=== PATIENT | male | born 1970 | race Caucasian/White ===

== ENCOUNTER 2019-03-15 13:00 | Emergency (ER) | payer OTHER ==
--- NOTE | 2019-03-15 13:03 | ERPHSYRPT ---
- History of Present Illness Time Seen by Provider: 03/15/19 13:02 Source: patient, family, old records Exam Limitations: no limitations Physician History: PT IS A 48 Y/O MALE PRESENTS WITH FAMILY C/O NON RADIATING SHARP 10/10 RIGHT LOW BACK PAIN THAT HE AWOKE WITH THIS AM. NO PARESTHESIAS/DSYURIA/HEMATURIA/ PENILE DC/FEVER/CHILLS/N/V/CP/SOB/FALL/HEAVY LIFTING/INCONTINENT OF BOWEL OR BLADDER. HAS HX OF PRIOR LBP BUT THIS IS MORE INTENSE. NO FHX AORTA. DID NOT TRY ANALGESIA PMHX ETOH ABUSE--LAST DRINK 2 YRS AGO, BACK STRAIN PSHX REVIEWED MEDS REVIEWED ALL COMPAZINE DENIES TOB LAST ETOH 2 YRS AGO DENIES ILLICITS EMPLOYED FHX NEG AORTA Allergies/Adverse Reactions: prochlorperazine [From Compazine] Allergy (Verified 03/15/19 13:21) Home Medications: Loratadine 10 mg [Claritin 10 mg] 10 mg PO DAILY 03/15/19 [History] - Review of Systems Constitutional: No Symptoms, No Fever, No Chills, No Fatigue, No Lethargy, No Malaise, No Night Sweats, No Weakness, No Weight Loss Eyes: No Symptoms, No Discharge, No Eye Pain, No Eye Redness, No Itchy, No Photophobia, No Tearing, No Vision Changes, No Double Vision, No Foreign Body Sensation Ears, Nose, & Throat: No Symptoms, No Ear Pain, No Ear Discharge, No Hearing Changes, No Tinnitus, No Nose Congestion, No Nose Discharge, No Epistaxis, No Mouth Pain, No Mouth Swelling, No Throat Pain, No Throat Swelling, No Hoarse, No Painful Swallowing, No Stridor Respiratory: No Symptoms, No Cough, No Cyanosis, No Dyspnea, No Dyspnea on Exertion (MARTINEZ), No Stridor, No Wheezing Cardiac: No Symptoms, No Chest Pain, No Edema, No Palpitations, No Syncope, No Orthopnea Abdominal/Gastrointestinal: No Symptoms, No Abdominal Pain, No Nausea, No Vomiting, No Diarrhea, No Constipation, No Hematemesis, No Hematochezia, No Melena, No Dysphagia, No Appetite Changes Genitourinary Symptoms: No Symptoms, No Dysuria, No Frequency, No Hematuria, No Hesitancy, No Incontinence, No Urgency, No Urinary Retention, No Flank Pain Musculoskeletal: No Symptoms, Back Pain, No Arthralgias, No Neck Pain, No Deformity, No Fall, No Injury, No Joint Redness, No Joint Pain, No Joint Swelling, No Myalgias Skin: No Symptoms, No Cellulitis, No Decubiti, No Induration, No Pruritis, No Rash, No Skin Lesions, No Dryness Neurological: No Symptoms, No Dizziness, No Focal Weakness, No Gait Changes, No Headache, No Irritability, No Lethargy, No Paralysis, No Parasthesia, No Seizure , No Sensory Changes, No Speech Changes, No Tics, No Tremors, No Vertigo Psychological: No Symptoms, No Alcohol Abuse, No Drug Abuse, No Anxiety, No Depression, No Suicidal Ideations, No Homicidal Ideations, No Emotional Lability , No Hallucinations, No Memory Loss, No Mood Changes Endocrine: No Symptoms, No Polyuria, No Polydipsia, No Hair Changes, No Cold Intolerance, No Excessive Sweating, No Goiter Hematologic/Lymphatic: No Symptoms, No Anemia, No Blood Clots, No Easy Bleeding , No Gum Bleeding, No Easy Bruising, No Adenopathy Immunological/Allergic: No Symptoms All Other Systems: Reviewed and Negative - Nursing Vital Signs Nursing Vital Signs: Initial Vital Signs Temperature 97.8 F 03/15/19 13:06 Pulse Rate 76 03/15/19 13:06 Respiratory Rate 22 03/15/19 13:06 Blood Pressure 136/111 03/15/19 13:06 O2 Sat by Pulse Oximetry 98 03/15/19 13:06 Pain Scale Pain Intensity [Right Back] 10 Pain Intensity 9 - Physical Exam General Appearance: no apparent distress, mild distress, alert Eye Exam: PERRL/EOMI, eyes nml inspection, other (fundi normal rey), No scleral icterus, No pale conjunctivae, No photophobia, No EOM palsy/anisocoria Ears, Nose, Throat Exam: normal ENT inspection, TMs normal, pharynx normal, TM abnormal (L), other (uvula midline, floor of mouth soft), No moist mucous membranes, No dry mucous membranes, No TM abnormal (R), No pharyngeal erythema, No tonsillar exudate Neck Exam: normal inspection, non-tender, supple, full range of motion, No meningismus, No mass, No Brudzinski, No Kernig's, No carotid bruit, No JVD, No limited range of motion, No lymphadenopathy, No midline tenderness, No thyromegaly Respiratory Exam: normal breath sounds, lungs clear, airway intact, No chest tenderness, No respiratory distress, No diminished breath sounds, No accessory muscle use, No prolonged expirations, No crackles/rales, No rhonchi, No wheezing , No stridor, No pleural rub Cardiovascular Exam: regular rate/rhythm, normal heart sounds, normal peripheral pulses, capillary refill <2 sec, No murmur, No friction rub, No gallop, No tachycardia, No bradycardia, No irregular, No capillary refill 2-3 sec, No capillary refill >3 sec, No edema, No pulse deficit Gastrointestinal/Abdomen Exam: soft, normal bowel sounds, No tenderness, No distention, No mass, No guarding, No ecchymosis, No pulsatile mass, No rebound, No hernia, No hepatomegaly, No organomegaly, No splenomegaly, No bruit Male Genitalia Exam: normal genitalia Rectal Exam: deferred, other (NO SACRAL ANESTHESIA) Back Exam: normal inspection, normal range of motion, other (neg slr rey, no sacral anesthesia, dtr 2/4 rey patella), No CVA tenderness, No vertebral tenderness, No rash, No decreased range of motion, No muscle spasm, No point tenderness Extremity Exam: normal inspection, normal range of motion, pelvis stable, No amputations, No contusions, No calf tenderness, No deformities, No lacerations, No parasthesia, No paralysis, No inflammation, No joint swelling, No limited range of motion, No pedal edema, No swelling, No tenderness Neurologic Exam: alert, oriented x 3, cooperative, truck washer II-XII nml as tested, normal mood/affect, nml cerebellar function, nml station & gait, sensation nml, No motor deficits, No sensory deficit, No disoriented, No confusion, No agitation, No uncooperative, No intoxicated appearance, No depressed mood/affect , No motor weakness, No facial droop, No slurred speech, No aphasia, No dysarthria, No abnormal gait, No abnormal cerebellar tests, No abnormal truck washer II- XII, No EOM palsy Skin Exam: normal color, warm, dry, No rash, No petechiae, No jaundice, No abrasion, No cyanosis, No diaphoresis, No decubitus, No embolic lesions, No ecchymosis, No jaundice, No laceration, No mottled, No pale Lymphatic Exam: No adenopathy SpO2 Interpretation: normal O2 Delivery: Room Air Ordered Tests: Active Orders 24 hr Category Date Time Status IV Insertion STAT Care 03/15/19 13:11 Active ABDOMEN AND PELVIS W/0 CONTRAS [CT] Stat Exams 03/15/19 13:11 Completed CBC W DIFF Stat Lab 03/15/19 13:25 Completed CMP Stat Lab 03/15/19 13:25 Completed ESR [Erythrocyte Sedimentation Rate] Stat Lab 03/15/19 13:25 Completed UA W/RFX UR CULTURE Stat Lab 03/15/19 13:06 Completed Medication Summary Discontinued Medications Generic Name Dose Route Start Last Admin Trade Name Freq PRN Reason Stop Dose Admin Hydrocodone Bitart/Acetaminophen 1 tab 03/15/19 13:11 03/15/19 13:21 [place] 5/325 Mg PO 03/15/19 13:12 1 tab STAT ONE Administration Hydrocodone Bitart/Acetaminophen Confirm 03/15/19 13:19 [place] 5/325 Mg Administered 03/15/19 13:20 Dose 1 tab .ROUTE .STK-MED ONE Hydromorphone HCl 1 mg 03/15/19 13:44 03/15/19 13:49 Hydromorphone 1 Mg/Ml Ampule IV 03/15/19 13:45 1 mg STAT ONE Administration Hydromorphone HCl Confirm 03/15/19 13:47 Hydromorphone 1 Mg/Ml Ampule Administered 03/15/19 13:48 Dose 1 mg .ROUTE .STK-MED ONE Sodium Chloride 1,000 mls @ 999 mls/hr 03/15/19 13:11 03/15/19 13:21 Sodium Chloride 0.9% 1000 Ml IV 03/15/19 14:11 999 mls/hr .Q1H1M STA Administration Sodium Chloride Confirm 03/15/19 13:19 Sodium Chloride 0.9% 1000 Ml Administered 03/15/19 13:20 Dose 1,000 mls @ ud .ROUTE .STK-MED ONE Sodium Chloride 1,000 mls @ 999 mls/hr 03/15/19 13:51 03/15/19 14:18 Sodium Chloride 0.9% 1000 Ml IV 03/15/19 14:51 999 mls/hr .Q1H1M STA Administration Sodium Chloride Confirm 03/15/19 14:18 Sodium Chloride 0.9% 1000 Ml Administered 03/15/19 14:19 Dose 1,000 mls @ ud .ROUTE .STK-MED ONE Ketorolac Tromethamine 15 mg 03/15/19 13:11 03/15/19 13:20 Toradol 30 Mg Injection IV 03/15/19 13:12 15 mg STAT ONE Administration Ketorolac Tromethamine Confirm 03/15/19 13:18 Toradol 30 Mg Injection Administered 03/15/19 13:19 Dose 30 mg .ROUTE .STK-MED ONE Lab/Rad Data: Laboratory Result Diagrams 03/15/19 13:25 03/15/19 13:25 Laboratory Results 03/15/19 03/15/19 03/15/19 Range/Units 13:25 13:25 13:25 WBC 7.4 (4.0-10.5) K/mm3 RBC 4.75 (4.1-5.6) M/mm3 Hgb 15.3 (12.5-18.0) gm/dl Hct 43.6 (42-50) % MCV 91.8 (78-100) fl MCH 32.2 H (26-32) pg MCHC 35.1 (32-36) g/dl RDW 13.4 (11.5-14.0) % Plt Count 267 (150-450) K/mm3 MPV 9.6 H (6-9.5) fl Gran % 48.8 (36.0-66.0) % Eos # (Auto) 0.62 H (0-0.5) Absolute Lymphs (auto) 2.34 (1.0-4.6) Absolute Monos (auto) 0.79 (0.0-1.3) Lymphocytes % 31.8 (24.0-44.0) % Monocytes % 10.7 (0.0-12.0) % Eosinophils % 8.4 H (0.00-5.0) % Basophils % 0.3 (0.0-0.4) % Absolute Granulocytes 3.59 (1.4-6.9) Basophils # 0.02 (0-0.4) ESR 5 (0-15) mm/hr Sodium 143 (137-145) mmol/L Potassium 3.7 (3.5-5.1) mmol/L Chloride 104 (98-107) mmol/L Carbon Dioxide 26 (22-30) mmol/L Anion Gap 16.4 H (5-15) MEQ/L BUN 18 (9-20) mg/dL Creatinine 1.01 (0.66-1.25) mg/dL Estimated GFR > 60.0 ML/MIN Glucose 124 H (74-106) mg/dL Calcium 9.6 (8.4-10.2) mg/dL Total Bilirubin 0.50 (0.2-1.3) mg/dL AST 27 (17-59) U/L ALT 18 (0-50) U/L Alkaline Phosphatase 58 (38-126) U/L Serum Total Protein 7.7 (6.3-8.2) g/dL Albumin 4.6 (3.5-5.0) g/dL Urine Color (YELLOW) Urine Appearance (CLEAR) Urine pH (5-6) Ur Specific [place] (1.005-1.025) Urine Protein (Negative) Urine Ketones (NEGATIVE) Urine Blood (0-5) Alexandro/ul Urine Nitrite (NEGATIVE) Urine Bilirubin (NEGATIVE) Urine Urobilinogen (0-1) mg/dL Ur Leukocyte Esterase (NEGATIVE) Urine WBC (Auto) (0-5) /HPF Urine RBC (Auto) (0-2) /HPF U Epithel Cells (Auto) (FEW) /HPF Urine Bacteria (Auto) (NEGATIVE) /HPF Urine Mucus (Auto) (NEGATIVE) /HPF Urine Culture Reflexed (NO) Urine Glucose (NEGATIVE) mg/dL 03/15/19 Range/Units 13:06 WBC (4.0-10.5) K/mm3 RBC (4.1-5.6) M/mm3 Hgb (12.5-18.0) gm/dl Hct (42-50) % MCV (78-100) fl MCH (26-32) pg MCHC (32-36) g/dl RDW (11.5-14.0) % Plt Count (150-450) K/mm3 MPV (6-9.5) fl Gran % (36.0-66.0) % Eos # (Auto) (0-0.5) Absolute Lymphs (auto) (1.0-4.6) Absolute Monos (auto) (0.0-1.3) Lymphocytes % (24.0-44.0) % Monocytes % (0.0-12.0) % Eosinophils % (0.00-5.0) % Basophils % (0.0-0.4) % Absolute Granulocytes (1.4-6.9) Basophils # (0-0.4) ESR (0-15) mm/hr Sodium (137-145) mmol/L Potassium (3.5-5.1) mmol/L Chloride (98-107) mmol/L Carbon Dioxide (22-30) mmol/L Anion Gap (5-15) MEQ/L BUN (9-20) mg/dL Creatinine (0.66-1.25) mg/dL Estimated GFR ML/MIN Glucose (74-106) mg/dL Calcium (8.4-10.2) mg/dL Total Bilirubin (0.2-1.3) mg/dL AST (17-59) U/L ALT (0-50) U/L Alkaline Phosphatase (38-126) U/L Serum Total Protein (6.3-8.2) g/dL Albumin (3.5-5.0) g/dL Urine Color YELLOW (YELLOW) Urine Appearance SLIGHTLY CLOUDY (CLEAR) Urine pH 5.0 (5-6) Ur Specific [place] 1.025 (1.005-1.025) Urine Protein NEGATIVE (Negative) Urine Ketones NEGATIVE (NEGATIVE) Urine Blood SMALL (0-5) Alexandro/ul Urine Nitrite NEGATIVE (NEGATIVE) Urine Bilirubin NEGATIVE (NEGATIVE) Urine Urobilinogen NEGATIVE (0-1) mg/dL Ur Leukocyte Esterase NEGATIVE (NEGATIVE) Urine WBC (Auto) NONE (0-5) /HPF Urine RBC (Auto) 3-5 (0-2) /HPF U Epithel Cells (Auto) NONE (FEW) /HPF Urine Bacteria (Auto) RARE (NEGATIVE) /HPF Urine Mucus (Auto) MANY (NEGATIVE) /HPF Urine Culture Reflexed NO (NO) Urine Glucose NEGATIVE (NEGATIVE) mg/dL - Progress Progress: improved Progress Note: 03/15/19 13:45 PT STATES NO RELIEF WITH TORADOL AND VICODIN "I CANT STAND IT." SUSPECT URETEROLITHIASIS. C/O PAIN NOW RADIATING TO RLQ. WILL GIVE SINGLE DOSE OF DILAUDID. 03/15/19 15:04 CT A/P 2-33 MMURINARY BLADDER CALC WITH MILD RIGHT HYDRO AND MINIMAL HYDROURETER , ADDITIONAL RIGHT RENAL MICROCALC PT IS MORE COMFORTABLE FINDINGS REVIEWED WITH PT AND FAMILY WILL DC WITH FUP WITH UROLOGY ALL QUESTIONS ANSWERED TO PT AND FAMILY SATISFACTION Counseled pt/family regarding: drug and/or alcohol abuse, lab results, diagnosis , need for follow-up, rad results, smoking cessation - Departure Departure Disposition: Home Clinical Impression: Ureterolithiasis Condition: Good Critical Care Time: No Referrals: FELIX SEGOVIA MD [Primary Care Provider] - ILENE PITTMAN [COURTESY STAFF] - Instructions: Kidney Stones in Adults Additional Instructions: TO ER IF INTRACTABLE VOMITING, FEVER OVER 102, WORSENING ABDOMINAL PAIN, CANNOT URINATE, URINATING BEVERLY BLOOD TAKE MEDICINES DIRECTED PLEASE FOLLOW UP [facility] DR. PITTMAN OF UROLOGY IN 2-3 DAYS FOR RE-EVALUATION AND DEFINITIVE CARE DRINK PLENTY OF FLUIDS STRAIN YOUR URINE. SAVE THE STONE AND TAKE IT TO DR. PITTMAN OF UROLOGY TO BE ANALYZED Prescriptions: Naproxen Sodium [Naproxen Sodium ER] 500 mg PO BID #10 tbmp.24hr
[2019-03-15] MEDS ORDERED: TORAdol 30 mg Injection IV ONE (13:11)
[2019-03-15] MEDS ORDERED: NORCO 5/325 MG PO ONE (13:11)
[2019-03-15] MEDS ORDERED: Sodium Chloride 0.9% 1000 ML 1,000 ML IV STA ×2 (13:11→13:51)
[2019-03-15] MEDS ORDERED: TORAdol 30 mg Injection ONE (13:18)
[2019-03-15] MEDS ORDERED: Sodium Chloride 0.9% 1000 ML 1,000 ML ONE ×2 (13:19→14:18)
[2019-03-15] MEDS ORDERED: NORCO 5/325 MG ONE (13:19)
[2019-03-15 13:21] VITALS: BP 136/111; PULSE 76; O2SAT 98
[2019-03-15 13:40] LABS: Absolute Neutrophil Ct (ANC) 3.59 (1.4-6.9); BASOPHIL % 0.3 % (0.0-0.4); Basophil (Absolute #) 0.02 (0-0.4); Eosinophil % 8.4 % (0.00-5.0); Eosinophil (Absolute #) 0.62 (0-0.5); Hematocrit 43.6 % (42-50); Hemoglobin 15.3 gm/dl (12.5-18.0); Lymphocyte (Absolute #) 2.34 (1.0-4.6); Lymphocytes % 31.8 % (24.0-44.0); Mean Cell Volume 91.8 fl (78-100); Mean Corpuscular Hemoglobin 32.2 pg (26-32); Mean Corpuscular Hgb Concent. 35.1 g/dl (32-36); Mean Platelet Volume 9.6 fl (6-9.5); Monocyte (Absolute #) 0.79 (0.0-1.3); Monocytes % 10.7 % (0.0-12.0); Neutrophil % 48.8 % (36.0-66.0); Platelet Count 267 K/mm3 (150-450); Red Blood Count 4.75 M/mm3 (4.1-5.6); Red Cell Distribution Width 13.4 % (11.5-14.0); White Blood Count 7.4 K/mm3 (4.0-10.5)
[2019-03-15] MEDS ORDERED: Hydromorphone 1 mg/ml Ampule IV ONE (13:44)
[2019-03-15] MEDS ORDERED: Hydromorphone 1 mg/ml Ampule ONE (13:47)
[2019-03-15 13:50] LABS: ALBUMIN 4.6 g/dL (3.5-5.0); ALKALINE PHOSPHATASE 58 U/L (38-126); ANION GAP 16.4 MEQ/L (5-15); BLOOD UREA NITROGEN 18 mg/dL (9-20); CHLORIDE 104 mmol/L (98-107); Calcium 9.6 mg/dL (8.4-10.2); Carbon Dioxide 26 mmol/L (22-30); Creatinine 1 1.01 mg/dL (0.66-1.25); Glucose 124 mg/dL (74-106); Potassium 3.7 mmol/L (3.5-5.1); SGOT/AST 27 U/L (17-59); SGPT/ALT 18 U/L (0-50); SODIUM 143 mmol/L (137-145); Total Protein 7.7 g/dL (6.3-8.2)
[2019-03-15 14:19] LABS: Appearance SLIGHTLY CLOUDY (CLEAR); Bacteria RARE /HPF (NEGATIVE); Bilirubin NEGATIVE (NEGATIVE); Blood SMALL Ery/ul (0-5); Glucose NEGATIVE (NEGATIVE); Ketones NEGATIVE (NEGATIVE); Leukocyte Esterase NEGATIVE (NEGATIVE); Mucus MANY /HPF (NEGATIVE); Nitrite NEGATIVE (NEGATIVE); Protein,Urine Dip NEGATIVE (Negative); Specific Gravity 1.025 (1.005-1.025); Urobilinogen NEGATIVE mg/dL (0-1)
--- NOTE | 2019-03-15 14:34 | XRAY ---
Indication: Right lower back pain. Multiple contiguous axial images obtained through the abdomen and pelvis without contrast as ordered. Comparison: None Lung bases demonstrates mild bibasilar dependent atelectasis. No infiltrate or effusion. Heart is not enlarged. Noncontrasted stomach and bowel loops appear nonobstructed. Normal appendix. There is mild diffuse scattered colonic fecal debris throughout. No free fluid/air. Posterior right urinary bladder demonstrates a tiny 2-3 mm intraluminal calculus. Right ureter is slightly prominent up to 7-8 mm and there is mild hydronephrosis consistent with recent passage of calculus. Right kidney also demonstrates 2-3 mm calculus in the lower renal calyx and a extrarenal pelvis. Left mid renal cortical thinning/scarring. Remaining liver, gallbladder, pancreas, spleen, adrenal glands, kidneys, ureters, bladder, and aorta appear unremarkable for noncontrast exam. Osseous structures intact. No ventral or inguinal hernias. Impression: 1. 2-3 mm urinary bladder calculus with mild right-sided hydronephrosis and minimal hydroureter from passage of calculus. Additional right renal micro-calculus. 2. Mild fecal stasis without obstruction. 3. Remaining CT abdomen/pelvis without contrast exam is negative. CT DI 22.79
== END 2019-03-15 15:35 | disposition home or self-care (01) ==
LOC: ED 13:00
DX: N20.1 Calculus of ureter (principal)
CPT/HCPCS: 36000; 36415; 74176; 80053; 81001; 85025; 85652; 96374; 96375; 99284; J1170; J1885; A9270-GY